=== PATIENT | female | born 1990 | race American Indian/Alaskan Native ===

== ENCOUNTER 2020-09-30 00:24 | Emergency (ER) | payer MEDICARE ==
[2020-09-30 00:40] VITALS: BP 115/66
[2020-09-30 01:28] LABS: Basophils % (Auto) 0.5 % (0.0-1.8); Eosinophils # (Auto) 0.1 K/mm3 (0.0-0.4); Eosinophils % (Auto) 1.2 % (0.0-4.3); Hematocrit 38.1 % (30.3-42.9); Hemoglobin 13.1 gm/dl (10.1-14.3); Lymphocytes # (Auto) 4.5 K/mm3 (1.2-5.4); Lymphocytes % (Auto) 46.7 % (13.4-35.0); Mean Corpuscular HGB Conc 35 % (30-34); Mean Corpuscular Volume 90 fl (79-97); Monocytes # (Auto) 0.5 K/mm3 (0.0-0.8); Monocytes % (Auto) 5.6 % (0.0-7.3); Platelet Count 279 K/mm3 (140-440); Red Blood Count 4.23 M/mm3 (3.65-5.03); Red Cell Distribution Width 12.4 % (13.2-15.2)
[2020-09-30 01:47] LABS: Alanine Aminotransferase 11 units/L (7-56); Albumin 4.1 g/dL (3.9-5); Blood Urea Nitrogen 9 mg/dL (7-17); Hemolysis Index 5
[2020-09-30 01:51] LABS: BUN/Creatinine Ratio 15
== END 2020-09-30 05:25 | disposition left against medical advice (07) ==
LOC: ED 00:24
DX: R10.9 Unspecified abdominal pain (principal); R11.2 Nausea with vomiting, unspecified; Z53.21 Procedure and treatment not carried out due to patient leaving prior to being seen by health care provider
CPT/HCPCS: 36415; 80053; 84703; 85025

== ENCOUNTER 2020-10-14 17:40 | Emergency (ER) | payer MEDICARE ==
[2020-10-14 17:51] VITALS: BP 107/66
--- NOTE | 2020-10-14 18:06 | Emergency Department Report ---
ED Female HPI - General Chief complaint: Urogenital-Female Stated complaint: BURNING ON URINATION/DISCHARGE Time Seen by Provider: 10/14/20 18:05 Source: patient Mode of arrival: Ambulatory Limitations: No Limitations - History of Present Illness Initial comments: Patient is a 29-year-old female presents emergency room with complaints of a UTI that began 2 days ago. She states that her symptoms are dysuria, back pain, hematuria. She denies any nausea, vomiting, diarrhea, fever, abdominal pain, abnormal vaginal discharge, pelvic pain, itching, burning, odor. No past medical history. She reports that she has an allergy to Tylenol and ibuprofen which she claims gives her a rash. She states her last menstrual cycle was a week ago. - Related Data Previous Rx's Medication Instructions Recorded Last Taken Type Phenazopyridine [Pyridium] 100 mg PO TID #9 tab 10/14/20 Unknown Rx cephALEXin [Keflex] 500 mg PO BID 7 Days #14 cap 10/14/20 Unknown Rx Allergies Allergy/AdvReac Type Severity Reaction Status Date / Time No Known Allergies Allergy Verified 10/14/20 17:41 ED Review of Systems ROS: Stated complaint: BURNING ON URINATION/DISCHARGE Other details as noted in HPI Comment: All other systems reviewed and negative ED Past Medical Hx - Past Medical History Previous Medical History?: No - Surgical History Additional Surgical History: Tonsilectomy - Social History Smoking Status: Never Smoker Substance Use Type: None - Medications Home Medications: Home Medications Medication Instructions Recorded Confirmed Last Taken Type Phenazopyridine [Pyridium] 100 mg PO TID #9 tab 10/14/20 Unknown Rx cephALEXin [Keflex] 500 mg PO BID 7 Days #14 cap 10/14/20 Unknown Rx ED Physical Exam - General Limitations: No Limitations General appearance: alert, in no apparent distress - Head Head exam: Present: atraumatic, normocephalic - Eye Eye exam: Present: normal appearance - ENT ENT exam: Present: mucous membranes moist - Respiratory Respiratory exam: Present: normal lung sounds bilaterally. Absent: respiratory distress, wheezes, rales, rhonchi, stridor, chest wall tenderness, accessory muscle use, decreased breath sounds, prolonged expiratory - Cardiovascular Cardiovascular Exam: Present: regular rate, normal rhythm, normal heart sounds. Absent: systolic murmur, diastolic murmur, rubs, gallop - GI/Abdominal GI/Abdominal exam: Present: soft, normal bowel sounds. Absent: distended, tenderness, guarding, rebound, rigid - Back Exam Back exam: Absent: CVA tenderness (R), CVA tenderness (L) - Neurological Exam Neurological exam: Present: alert, oriented X3 - Psychiatric Psychiatric exam: Present: normal affect, normal mood - Skin Skin exam: Present: warm, dry, intact ED Course Vital Signs 10/14/20 17:46 Temperature 98.6 F Pulse Rate 86 Respiratory 18 Rate Blood Pressure 107/66 O2 Sat by Pulse 96 Oximetry ED Medical Decision Making - Medical Decision Making Patient is a 29-year-old female presents emergency room with complaints of a UTI that began 2 days ago. She states that her symptoms are dysuria, back pain, hematuria. She denies any nausea, vomiting, diarrhea, fever, abdominal pain, abnormal vaginal discharge, pelvic pain, itching, burning, odor. No past medical history. She reports that she has an allergy to Tylenol and ibuprofen which she claims gives her a rash. She states her last menstrual cycle was a week ago. vitals are normal. no abd ttp, no CVAT, no guarding, no rebound, no rigidity, normal bowel sounds. UA shows evidence of UTI. Patient given 1 g of ceftriaxone IM while in the emergency department. Pt given prescription for keflex and pyridium. advised pt Please take medication as prescribed. Increase your water intake. Follow-up with a primary care doctor for reexamination and to have your urine retested. Return to emergency room for new or worsening symptoms. Critical care attestation.: If time is entered above; I have spent that time in minutes in the direct care of this critically ill patient, excluding procedure time. ED Disposition Clinical Impression: UTI (urinary tract infection) Qualifiers: Urinary tract infection type: acute cystitis Hematuria presence: with hematuria Qualified Code(s): N30.01 - Acute cystitis with hematuria Disposition: TO HOME OR SELFCARE Is pt being admited?: No Does the pt Need Aspirin: No Condition: Stable Instructions: Urinary Tract Infection, Adult Additional Instructions: Please take medication as prescribed. Increase your water intake. Follow-up w ith a primary care doctor for reexamination and to have your urine retested. Return to emergency room for new or worsening symptoms. Prescriptions: cephALEXin [Keflex] 500 mg PO BID 7 Days #14 cap Phenazopyridine [Pyridium] 100 mg PO TID #9 tab Referrals: PRIMARY CAREMD [Primary Care Provider] - 2-3 Days KATIE KUNZ MD [Staff Physician] - 2-3 Days [facility] [Provider Group] - 2-3 Days Time of Disposition: 19:03 Print Language: MAORI
[2020-10-14 18:45] LABS: Bacteria,Urine 1+ /HPF (Negative); Bilirubin,Urine NEG (Negative); Blood,Urine NEG (Negative); Color,Urine Yellow (Yellow); Mucus,Urine FEW /HPF; Urobilinogen,Urine < 2.0 mg/dL (<2.0)
[2020-10-14 18:46] LABS: HCG Qualitative,Urine Negative (Negative)
[2020-10-14] MEDS ORDERED: LIDOCAINE-MPF (1%) 10 MG/1 ML VIAL 5 ML INFILTRATI ONE (18:56)
== END 2020-10-14 19:37 | disposition home or self-care (01) ==
LOC: ED 17:40
DX: N39.0 Urinary tract infection, site not specified (principal); Z90.89 Acquired absence of other organs; Z79.899 Other long term (current) drug therapy
CPT/HCPCS: 81001; 81025; 87086; 96372; 99283; J0696